=== PATIENT | female | born 1975 | race Two or more races ===

== ENCOUNTER → 2025-04-13 | Emergency (ER) | payer OTHER ==
[~2025-04-13] VITALS: Ht 172.7 cm; Wt 68.0 kg
[~2025-04-13] MED LIST: FAMOTIDINE/PF 20 MG/2 ML VIAL ONE; FAMOtidine 10 MG/ML (4ML VIAL) IV STA; KETO10TA2 PO; KETOROLAC TROMETHAMINE 60 MG VIAL IM ONE; METOCLOPRAMIDE HCL 5 MG/ML VIAL IV STA; METOCLOPRAMIDE HCL 5 MG/ML VIAL ONE; PROTONIX40 MG PO; ZOFRAN8 MG PO
[2025-04-13 13:15] LABS: ALBUMIN 3.4 gm/dL (3.4-5.0); BILIRUBIN TOTAL 1.54 mg/dL (0.3-1.2); BILIRUBIN,CONJUGATED 0.27 mg/dL (0.0-0.2); BILIRUBIN,UNCONJUGATED 1.27 mg/dL (0.0-0.6); CALCIUM 8.4 mg/dL (8.5-10.1); CREATININE SERUM 0.76 mg/dL (0.55-1.02); GFR 80.55; POTASSIUM 4.45 mEq/L (3.5-5.1); TOTAL PROTEIN 7.5 gm/dL (6.4-8.2)
[2025-04-13 16:17] LABS: BASO % 0.1 % (0.1-1.2); HEMATOCRIT 40.2 % (34.1-44.9); HEMOGLOBIN 13.5 g/dL (11.2-15.7); LYMPH # 0.32 (1.18-3.74); LYMPH % 4.6 % (19.3-53.1); MEAN CORPUSCULAR HEMOGLOBIN 28.8 pg (25.6-32.2); MONO # 0.35 (0.24-0.82); MONO % 5.1 % (4.7-12.5); NEUT % 89.8 % (34.0-71.1); PLATELET COUNT 283 K/uL (163-369); RED BLOOD COUNT 4.69 M/uL (3.93-5.22)
== END | disposition home or self-care (01) ==
LOC: ER 10:36
PROVIDERS: General Practice
DX: K29.70 Gastritis, unspecified, without bleeding (principal); R10.9 Unspecified abdominal pain